=== PATIENT | male | born 1980 | race Caucasian/White ===

== ENCOUNTER → 2017-04-15 | Outpatient (CLI) | payer MEDICAID ==
[~2017-04-15] VITALS: Ht 185.4 cm; Wt 115.6 kg
[2017-04-15] VITALS (9 sets, daily range): BP systolic 130–154; BP diastolic 75–100; PULSE 70–91
[~2017-04-15] MED LIST: LEVITRA10 MG PO; ZANTAC 150MG T150 MG PO
[2017-04-15 08:59] LABS: PROTHROMBIN TIME 11.5 SECONDS (9.7-12.8)
== END ==
LOC: COL.RAD 04-10 12:00
PROVIDERS: Physician Assistant
DX: K76.0 Fatty (change of) liver, not elsewhere classified (principal); F10.10 Alcohol abuse, uncomplicated; R17 Unspecified jaundice; R74.8 Abnormal levels of other serum enzymes
CPT/HCPCS: 25757

== ENCOUNTER → 2018-08-26 | Outpatient (CLI) | payer MEDICAID | LOC: MHCPAIN 09:45 | DX: G89.29 Other chronic pain (principal); M47.817 Spondylosis without myelopathy or radiculopathy, lumbosacral region; M54.16 Radiculopathy, lumbar region; M53.3 Sacrococcygeal disorders, not elsewhere classified | CPT/HCPCS: G0463 ==

== ENCOUNTER → 2018-09-03 | Outpatient (CLI) | payer MEDICAID | LOC: MHCPAIN 12:57 | DX: M47.817 Spondylosis without myelopathy or radiculopathy, lumbosacral region (principal); M54.16 Radiculopathy, lumbar region | CPT/HCPCS: J1100; Q9967 ==

== ENCOUNTER → 2018-09-16 | Outpatient (CLI) | payer MEDICAID | LOC: MHCPAIN 13:11 | DX: G89.29 Other chronic pain (principal); M47.817 Spondylosis without myelopathy or radiculopathy, lumbosacral region; M54.16 Radiculopathy, lumbar region; M53.3 Sacrococcygeal disorders, not elsewhere classified | CPT/HCPCS: G0463 ==

== ENCOUNTER → 2018-09-24 | Outpatient (CLI) | payer MEDICAID | LOC: MHCPAIN 08:32 | DX: M47.817 Spondylosis without myelopathy or radiculopathy, lumbosacral region (principal); M54.16 Radiculopathy, lumbar region | CPT/HCPCS: J1100; Q9967 ==